=== PATIENT | male | born 1980 | race Two or more races ===

== ENCOUNTER 2021-07-25 16:29 | Emergency (ER) | payer OTHER ==
[~2021-07-25] VITALS: Ht 188 cm; Wt 74.8 kg
--- NOTE | 2021-07-25 16:38 | NUR ---
Pt was BIB [id number] and placed in room 4A, pt walked out of ER at this time.
== END 2021-07-25 16:52 | disposition left against medical advice (07) ==
LOC: ER 16:33
DX: Z53.21 Procedure and treatment not carried out due to patient leaving prior to being seen by health care provider (principal)

== ENCOUNTER 2024-03-12 17:45 | Emergency (ER) | payer BC, OTHER ==
[~2024-03-12] VITALS: Ht 185.4 cm; Wt 81.6 kg
[2024-03-12] MEDS ORDERED: ERYT3.5O24 RIGHTEYE (19:58)
[2024-03-12] MEDS ORDERED: ERYTHROMYCIN 0.5% OPHT OINT 3.5 GM TUBE ONE (20:19)
[2024-03-12] MEDS: ERYTHROMYCIN 0.5% OPHT OINT 3.5 GM TUBE OP ONE (20:20)
[2024-03-12 20:27] VITALS: BP 126/80; TEMP 98.5; O2SAT 98
== END 2024-03-12 20:31 | disposition home or self-care (01) ==
LOC: ER 17:46
DX: H00.015 Hordeolum externum left lower eyelid (principal); Z79.899 Other long term (current) drug therapy; Z60.2 Problems related to living alone; Z88.6 Allergy status to analgesic agent
CPT/HCPCS: A4606; A4663